=== PATIENT | male | born 1990 | race Hispanic/Latino ===

== ENCOUNTER 2022-07-12 16:53 | Emergency (ER) | payer SELFPAY ==
[~2022-07-12] VITALS: Ht 167.6 cm; Wt 90.7 kg
[2022-07-12] MEDS ORDERED: SODIUM CHLORIDE 0.9% 1000ML 1,000 ML IV STA (17:42)
[2022-07-12] MEDS ORDERED: METOCLOPRAMIDE HCL 10 MG/2ML VIAL IV NR (17:45)
[2022-07-12] MEDS ORDERED: DIPHENHYDRAMINE HCL INJ 50 MG/ML VIAL IV NR (17:45)
[2022-07-12] MEDS ORDERED: KETOROLAC TROMETHAMINE 30 MG/ML VIAL IV NR (18:45)
[2022-07-12] MEDS ORDERED: FIORICET 50-301 EACH PO (19:51)
[2022-07-12] MEDS ORDERED: IBUPROFEN600 MG PO (19:51)
[2022-07-12 19:57] VITALS: BP 126/76
== END 2022-07-12 20:03 | disposition home or self-care (01) ==
LOC: ER 17:07
DX: R51.9 Headache, unspecified (principal)
CPT/HCPCS: 70450; 99283; J1200; J1885; J2765; J7030